=== PATIENT | female | born 1965 | race Caucasian/White ===

== ENCOUNTER → 2017-07-14 | Outpatient (CLI) | payer OTHER ==
[~2017-07-14] MED LIST: CETI10TA84 PO; CINN1CAP2 PO; CLC100 PO; GLC500 PO; IRON PO; LISIPOW PO; MULT-506 PO; OMEP40CA PO; OXYB5TAB74 PO; POTA4.25 PO; SERT-234 PO; SIMVASTATIN PO; TAMS0.4C38 PO; VERA1CAP6 PO; ZOLP5TAB PO
== END | disposition home or self-care (01) ==
LOC: C.LABSPEC 17:01
PROVIDERS: ATTEND Urology
DX: N13.30 Unspecified hydronephrosis (principal)

== ENCOUNTER → 2017-08-18 | Outpatient (CLI) | payer OTHER ==
--- NOTE | 2017-08-18 11:59 | DIAGNOSTIC IMAGING REPORT ---
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 History of right-sided nephrolithiasis. N20.0 [id number] COMPARISON: Renal ultrasound 06/25/2015, KUB 01/01/2015. FINDINGS: The bowel gas pattern is non-obstructive. There is no organomegaly. Post surgical changes are seen within the left upper abdomen compatible with patient history of prior left-sided nephrectomy. Cholecystectomy clips are also seen. Right renal shadow is noted without definite right-sided renal or ureteral calculi. No pneumoperitoneum or pneumatosis. No fracture. IMPRESSION: 1. Post surgical changes of the left upper abdomen compatible with patient's history of prior left-sided nephrectomy. 2. No definite right-sided renal or ureteral calculi. Electronically signed by: Colton Gonzalez M.D. 08/18/2017 11:58 AM Dictated Date/Time: 08/18/2017 11:56 AM
== END | disposition home or self-care (01) ==
LOC: C.RAD 11:25
PROVIDERS: ATTEND Urology
DX: N20.0 Calculus of kidney (principal); Z90.5 Acquired absence of kidney